=== PATIENT | female | born 1990 | race Caucasian/White ===

== ENCOUNTER 2017-05-03 06:56 | Emergency (ER) | payer SELFPAY ==
[~2017-05-03] VITALS: Ht 182.9 cm; Wt 63.0 kg
[2017-05-03] MEDS ORDERED: SODIUM CHLORIDE 0.9% 1,000 ML IV ONE (07:22)
[2017-05-03] MEDS ORDERED: LORAZEPAM 2MG/ML CPJ IM ONE ×2 (08:00→15:30)
[2017-05-03] MEDS ORDERED: HALOPERIDOL LACTATE 5MG/ML VIAL IM ONE (08:00)
[2017-05-03 08:06] LABS: BASOPHILS % 0.8 % (0.0-2.0); EOSINOPHILS % 1.5 % (0.0-5.0); HEMATOCRIT. 36.8 % (36.0-48.0); HEMOGLOBIN. 12.6 g/dL (12.0-16.0); LYMPHOCYTES % 21.5 % (20.0-50.0); MEAN CORPUSCULAR HEMOGLOBIN 30.4 pg (28.0-32.0); MEAN PLATELET VOLUME 9.6 fl (7.4-10.4); MONOCYTES % 8.5 % (2.0-8.0); NEUTROPHILS % 67.7 % (40.0-76.0); PLATELET 209 x1000/uL (130-400); RED BLOOD CELL COUNT 4.13 mill/uL (4.2-5.4); RED CELL DISTRIBUTION WIDTH 12.6 % (11.6-14.6)
[2017-05-03 08:17] LABS: CHLORIDE 104 mEq/L (98-107)
[2017-05-03 08:27] LABS: CARBON DIOXIDE 28 mEq/L (21-32); ETHANOL BLOOD < 10 mg/dL
[2017-05-03 08:29] LABS: HCG SCREEN NEGATIVE
[2017-05-03 09:17] LABS: CLARITY URINE CLEAR (CLEAR); COLOR URINE YELLOW (YELLOW); GLUCOSE URINE NEGATIVE (NEGATIVE); KETONES URINE TRACE (NEGATIVE); LEUKOCYTE ESTERASE URINE 1+ (NEGATIVE); NITRITE URINE NEGATIVE (NEGATIVE); OCCULT BLOOD URINE 1+ (NEGATIVE); PROTEIN URINE NEGATIVE (NEGATIVE); SPECIFIC GRAVITY URINE 1.023 (1.005-1.030)
[2017-05-03 09:29] LABS: *AMPHETAMINES SCREEN URINE NEGATIVE (NEGATIVE); *BARBITURATES SCREEN URINE NEGATIVE (NEGATIVE); *COCAINE SCREEN URINE NEGATIVE (NEGATIVE); CANNABINOID URINE SCREEN NEGATIVE (NEGATIVE); METHADONE URINE SCREEN NEGATIVE (NEGATIVE); OPIATES URINE SCREEN NEGATIVE (NEGATIVE); PHENCYCLIDINE URINE SCREEN NEGATIVE (NEGATIVE)
[2017-05-03 09:32] LABS: *BENZODIAZEPINES SCREEN URINE PRESUMTIVE POSITIVE (NEGATIVE)
[2017-05-03] MEDS ORDERED: CEFTRIAXONE 1 G PREMIX 50 ML IV ONE (14:00)
[2017-05-03] MEDS ORDERED: ZIPRASIDONE MESYLATE 20MG/VIAL IM ONE (15:30)
[2017-05-04] MEDS ORDERED: CLONAZEPAM 1MG TABLET PO ONE (15:45)
[2017-05-04] MEDS ORDERED: ZIPRASIDONE MESYLATE 20MG/VIAL IM ONE (15:45)
[2017-05-05] MEDS ORDERED: ZIPRASIDONE MESYLATE 20MG/VIAL IM ONE ×2 (06:15→14:45)
[2017-05-05] MEDS ORDERED: LORAZEPAM 2MG/ML CPJ IM ONE (09:15)
[2017-05-05] MEDS ORDERED: OLANZAPINE 10 MG/VIAL IM ONE (09:15)
[2017-05-05] MEDS ORDERED: LORAZEPAM 2MG/ML CPJ IM STA (12:42)
[2017-05-05 13:33] LABS: CREATINE KINASE 294 IU/L (26-192)
[2017-05-05 20:48] VITALS: BP 126/88
== END 2017-05-05 20:48 ==
LOC: ER 07:12
DX: F91.8 Other conduct disorders (principal); R45.6 Violent behavior; Z78.1 Physical restraint status; F19.10 Other psychoactive substance abuse, uncomplicated; N39.0 Urinary tract infection, site not specified; R94.31 Abnormal electrocardiogram [ECG] [EKG]; R46.0 Very low level of personal hygiene; Z75.1 Person awaiting admission to adequate facility elsewhere
CPT/HCPCS: 36415; 80053; 80305; 80307; 80329; 81001; 82550; 82962; 84703; 85025; 93005; 96361; 96365; 96372; 99285; G0482; J0696; J1630; J2060; J3486; J3490; J7030; Z7610